=== PATIENT | male | born 1980 | race Caucasian/White ===

== ENCOUNTER 2016-07-22 04:14 | Emergency (ER) | payer MEDICAID ==
[2016-07-22 04:43] VITALS: BP 123/69
== END 2016-07-22 05:51 | disposition left against medical advice (07) ==
LOC: ER 04:14
DX: Z53.21 Procedure and treatment not carried out due to patient leaving prior to being seen by health care provider (principal)
CPT/HCPCS: 71020

== ENCOUNTER 2016-08-12 01:06 | Emergency (ER) | payer MEDICAID ==
[2016-08-12 01:14] VITALS: BP 146/69
[2016-08-12] MEDS ORDERED: KETOROLAC TROMETHAMINE 60 MG/2 ML SDV IM ONE (01:38)
--- NOTE | 2016-08-12 01:43 | ER Document Report ---
ED General - General Chief Complaint: Shoulder Pain Stated Complaint: LEFT SHOULDER PAIN Time Seen by Provider: 08/12/16 01:29 Notes: Patient is a 35-year-old male who presents with complaint left shoulder pain. This is been ongoing for 3-4 days. He says he cannot lift his arm away from his body. Pain radiates down the arm. No numbness or weakness into the hand. He does not remember any trauma. Has never had this problem before. No fevers. No redness or swelling to the shoulder. He has been applying IcyHot to the shoulder. I was looking through his previous visits ER. He checked into the ER on July 22 due to a possible overdose. He was never seen and left without being seen. I asked him why he was here at that time. Patient says that he had mixed alcohol with another medication. His says that the other medication with Suboxone. Patient says that he was on Suboxone. His says that they wean him off and he has not been on it for 2 weeks. TRAVEL OUTSIDE OF THE [place] IN LAST 30 DAYS: No - Related Data Allergies/Adverse Reactions: No Known Allergies Allergy (Verified 01/22/12 10:13) Past Medical History - Social History Smoking Status: Current Every Day Smoker Frequency of alcohol use: Occasional Drug Abuse: None Family History: Reviewed & Not Pertinent Patient has suicidal ideation: No Patient has homicidal ideation: No Pulmonary Medical History: Reports: Hx Pneumonia - Pt complains of spontaneous pneumonia in 2011 Denies: Hx Tuberculosis Renal/ Medical History: Denies: Hx Peritoneal Dialysis Past Surgical History: Reports: Hx Adenoidectomy. Denies: Hx Pacemaker - Immunizations Hx Diphtheria, Pertussis, Tetanus Vaccination: Yes Review of Systems - Review of Systems Notes: My Normal Review Basic REVIEW OF SYSTEMS: CONSTITUTIONAL : Denies fever, chills, or sweats. Denies recent illness. CARDIOVASCULAR: Denies chest pain. RESPIRATORY: Denies cough, cold, or chest congestion. Denies shortness of breath, difficulty breathing, or wheezing. MUSCULOSKELETAL: Left shoulder pain. SKIN: Denies rash or skin lesions. NEUROLOGICAL: Denies sensory or motor loss. ALL OTHER SYSTEMS REVIEWED AND NEGATIVE. Physical Exam - Vital signs Vitals: Temp Pulse Resp BP Pulse Ox 98.2 F 99 16 146/69 H 99 08/12/16 01:11 08/12/16 01:11 08/12/16 01:11 08/12/16 01:08/12/16 01:11 - Notes Notes: General Appearance: Well nourished, alert, cooperative, no acute distress, moderate obvious discomfort. Vitals: reviewed, See vital signs table. Eyes: PERRL, EOMI, Conjuctiva clear Extremities: strength 5/5 in all extremities, good pulses in all extremities, patient has no significant pain to palpation the left shoulder. He does have pain with flexion or extension of the left shoulder. He also has pain with abduction of the shoulder. He is able to flex his shoulder but has been doing so. He has real difficulty performing any form of abduction. 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 Good distal sensation. Good movement of all fingers in the left hand. Good distal pulses., no edema. Skin: warm, dry, appropriate color, no rash Neuro: speech clear, oriented x 3, normal affect, responds appropriately to questions. Good distal sensation. Course - Vital Signs Vital signs: Temp Pulse Resp BP Pulse Ox 98.2 F 99 16 146/69 H 99 08/12/16 01:11 08/12/16 01:11 08/12/16 01:08/12/16 01:08/12/16 01:11 - Transfer of Care Notes: 08/13/16 06:22 I suspect the patient has a rotator cuff tear based on his physical exam findings. He is unable to do any significant abduction of the shoulder. He is able do some internal/external rotation but has been doing so. There is no redness or swelling to the shoulder. He has no fevers. No signs of infection. Will place in a sling and have him follow-up with orthopedics for further evaluation and possible MRI. I encouraged him return to ER immediately if he has worsening pain, fevers, redness or swelling to the shoulder, or if he feels unwell. Patient agrees with plan and will be discharged home. Dictation of this chart was performed using voice recognition software; therefore, there may be some unintended grammatical errors. Discharge - Discharge Clinical Impression: Shoulder pain, left Qualifiers: Chronicity: acute Qualified Code(s): M25.512 - Pain in left shoulder Condition: Good Disposition: HOME, SELF-CARE Instructions: Oral Narcotic Medication ([facility]) Additional Instructions: Please wear the sling for support and comfort. Please still try to place your shoulder through range of motion several times a day. please call the orthopedist, Dr. Smith, for a close follow up appointment. Please return to [facility] ER immediately if you develop worsening pain, fevers, redness to the shoulder or swelling of the shoulder. Prescriptions: Tramadol HCl [Ultram] 50 mg PO Q6 PRN #15 tablet PRN Reason: Forms: Return to Work Referrals: CYNTHIA SMITH MD [ACTIVE STAFF] - Follow up in 3-5 days
--- NOTE | 2016-08-12 02:32 | RADIOLOGY REPORT (SQ) ---
EXAM DESCRIPTION: SHOULDER LEFT 2 OR MORE VIEWS COMPLETED DATE/TIME: 08/12/2016 2:10 am REASON FOR STUDY: shoulder pain COMPARISON: None. NUMBER OF VIEWS: Three views. TECHNIQUE: Internal rotation, external rotation, and Y view images acquired of the left shoulder. LIMITATIONS: None. FINDINGS: MINERALIZATION: Normal. BONES: No acute fracture or dislocation. No worrisome bone lesions. JOINTS: No dislocation. VISUALIZED LUNGS AND RIBS: No pneumothorax. No rib fracture. SOFT TISSUES: No radiopaque foreign body. OTHER: No other significant finding. IMPRESSION: NEGATIVE STUDY OF THE LEFT SHOULDER. NO RADIOGRAPHIC EVIDENCE OF ACUTE INJURY. TECHNICAL DOCUMENTATION: JOB ID: [id number] [employer]- All Rights Reserved
[2016-08-12] MEDS ORDERED: TRAMADOL HCL 50 MG TABLET PO ONE (02:41)
== END 2016-08-12 03:14 | disposition home or self-care (01) ==
LOC: ER 01:06
DX: M25.512 Pain in left shoulder (principal); M79.602 Pain in left arm; F17.200 Nicotine dependence, unspecified, uncomplicated
CPT/HCPCS: 99283; 96372; 73030; J1885